=== PATIENT | female | born 1965 | race Two or more races ===

== ENCOUNTER 2023-11-27 19:33 | Emergency (ER) | payer OTHER ==
[~2023-11-27] VITALS: Ht 154.9 cm; Wt 58.5 kg
[2023-11-27] MEDS ORDERED: PANTOPRAZOLE SODIUM 40 MG in 0.9 % SODIUM CHLORIDE 8 ML IV PUSH STA (20:27)
[2023-11-27] MEDS ORDERED: 0.9 % SODIUM CHLORIDE 1,000 ML IV SCH (20:30)
[2023-11-27 21:04] LABS: HEMATOCRIT 27.4 % (36.0-45.00); MEAN CORPUSCULAR HGB CONC 33.3 g/dl (32.0-36.0); PLATELET COUNT 319 K/uL (150-450); RED BLOOD COUNT 2.98 M/uL (4.00-6.00); RED CELL DISTRIBUTION WIDTH 14.5 % (11.5-14.5)
[2023-11-27 21:05] LABS: HEMOGLOBIN 9.1 g/dL (12.0-15.00); MEAN CORPUSCULAR HEMOGLOBIN 30.5 pg (27.00-32.0)
[2023-11-27 21:16] LABS: INR 1.03; PARTIAL THROMBOPLASTIN TIME 27.1 SECONDS (22.0-34.0); PROTHROMBIN TIME 10.8 SECONDS (9.0-11.5)
[2023-11-27 21:21] LABS: ALBUMIN 3.2 gm/dL (3.4-5.0); BILIRUBIN TOTAL 0.27 mg/dL (0.3-1.2); CALCIUM 8.5 mg/dL (8.5-10.1); CREATININE SERUM 1.56 mg/dL (0.55-1.02); GFR 33.97; GLOBULINA 3.4 G/DL (2.4-3.5); TOTAL PROTEIN 6.6 gm/dL (6.4-8.2)
[2023-11-27 21:27] LABS: POTASSIUM 2.97 mEq/L (3.5-5.1)
[2023-11-28] MEDS ORDERED: PANTOPRAZOLE SODIUM 40 MG/VIAL VIAL IV STA (00:40)
[2023-11-28] MEDS ORDERED: POTASSIUM CHLORIDE/D5-0.9%NACL 20 MEQ/1,000 ML PIGGYBAG IV STA (00:43)
[2023-11-28] MEDS ORDERED: MEPERIDINE HCL/PF 50 MG/ML VIAL IM STA (00:45)
[2023-11-28] MEDS ORDERED: PROMETHAZINE HCL 50 MG/ML AMPUL IM STA (00:45)
[2023-11-28] MEDS ORDERED: PANTOPRAZOLE SODIUM 40 MG/VIAL VIAL IV SCH (01:15)
[2023-11-28] MEDS ORDERED: POTASSIUM CHLORIDE 10 MEQ CAPSULE PO STA (04:42)
[2023-11-28 04:54] LABS: HEMATOCRIT 26.9 % (36.0-45.00); HEMOGLOBIN 9.2 g/dL (12.0-15.00); MEAN CELL VOLUME 90.9 fL (80.00-100.00); MEAN CORPUSCULAR HEMOGLOBIN 30.9 pg (27.00-32.0); PLATELET COUNT 302 K/uL (150-450); RED BLOOD COUNT 2.96 M/uL (4.00-6.00); RED CELL DISTRIBUTION WIDTH 14.8 % (11.5-14.5)
== END 2023-11-28 05:41 | disposition home or self-care (01) ==
LOC: ER 19:33
PROVIDERS: Emergency Medicine
DX: K29.70 Gastritis, unspecified, without bleeding (principal); K57.30 Diverticulosis of large intestine without perforation or abscess without bleeding; K44.9 Diaphragmatic hernia without obstruction or gangrene; I70.8 Atherosclerosis of other arteries; I10 Essential (primary) hypertension; Z91.018 Allergy to other foods; Z20.822 Contact with and (suspected) exposure to COVID-19